=== PATIENT | female | born 1995 ===

== ENCOUNTER → 2017-05-04 | Outpatient (CLI) | payer BC, OTHER ==
--- NOTE | 2017-05-04 14:25 | DIAGNOSTIC IMAGING REPORT ---
RIGHT FOOT MIN 3 VIEWS CLINICAL HISTORY: Right foot pain. COMPARISON: None FINDINGS: Tarsometatarsal joints are intact. No acute fracture is identified. There is an os trigonum. Joint spaces are preserved. There are no erosions. IMPRESSION: 1. No acute fracture or dislocation of the right foot. 2. Os trigonum. Electronically signed by: Yannick Porter M.D. 05/04/2017 2:24 PM Dictated Date/Time: 05/04/2017 2:21 PM
== END | disposition home or self-care (01) ==
LOC: C.RDSM 13:25
PROVIDERS: ATTEND Internal Medicine
DX: M79.671 Pain in right foot (principal); Q68.8 Other specified congenital musculoskeletal deformities

== ENCOUNTER → 2017-06-06 | Outpatient (CLI) | payer BC, OTHER ==
--- NOTE | 2017-06-06 15:16 | DIAGNOSTIC IMAGING REPORT ---
L SHOULDER MIN 2 VIEWS ROUTINE CLINICAL HISTORY: 22 years-old Female presenting with LT SHOULDER INJURY. TECHNIQUE: Internal rotation, transscapular Y, and axillary views of the left shoulder were obtained. COMPARISON: None. FINDINGS: Glenohumeral and acromioclavicular joints congruent. No acute fracture of the humerus or scapula. Mild irregularity of the mid to distal clavicle diaphysis could represent overlapping shadows or a prominent nutrient canal. No convincing evidence of a fracture. Regional soft tissues within normal limits. Visualized portions of the left lung clear. IMPRESSION: No convincing evidence of acute osseous injury of the left shoulder. No subluxation the glenohumeral joint. In discussing with the ordering physician, no point tenderness at the mid to distal clavicle to suggest injury. Electronically signed by: Fadi Ceballos M.D. 06/06/2017 3:14 PM Dictated Date/Time: 06/06/2017 3:13 PM
== END | disposition home or self-care (01) ==
LOC: C.RAD 14:09
PROVIDERS: ATTEND Internal Medicine
DX: M25.512 Pain in left shoulder (principal)

== ENCOUNTER → 2017-06-07 | Outpatient (CLI) | payer OTHER ==
--- NOTE | 2017-06-07 12:20 | DIAGNOSTIC IMAGING REPORT ---
LEFT CLAVICLE 2 VIEWS CLINICAL HISTORY: Left clavicular fracture. FINDINGS: 2 views of left clavicle are correlated with radiographs of the left shoulder dated 06/06/2017. The skeletal structures are well mineralized. There is a minimally distracted fracture through the mid to distal shaft of the left clavicle with apex cranial angulation. The sternoclavicular and acromioclavicular joints appear maintained. The left upper lobe lung parenchyma is clear as imaged. IMPRESSION: Minimally distracted and angulated fracture through the mid to distal shaft of the left clavicle as above. Electronically signed by: Darrell Duran M.D. 06/07/2017 12:19 PM Dictated Date/Time: 06/07/2017 12:15 PM
== END | disposition home or self-care (01) ==
LOC: C.RDSM 15:58
PROVIDERS: ATTEND Internal Medicine
DX: S42.022A Displaced fracture of shaft of left clavicle, initial encounter for closed fracture (principal); X58.XXXA Exposure to other specified factors, initial encounter

== ENCOUNTER → 2017-06-18 | Outpatient (CLI) | payer BC, OTHER ==
--- NOTE | 2017-06-18 11:44 | DIAGNOSTIC IMAGING REPORT ---
LEFT CLAVICLE 2 VIEWS CLINICAL HISTORY: CLOSED FRACTURE OF LEFT CLAVICLE COMPARISON STUDY: Left clavicle 06/07/2017. FINDINGS: Redemonstration of the slightly angulated left mid shaft clavicle fracture. The angulation is not significantly changed. There has been interval bony bridging consistent with partial healing. IMPRESSION: Healing left mid shaft clavicle fracture with no significant change in the mild inferior angulation. Electronically signed by: Arun Patel M.D. 06/18/2017 11:43 AM Dictated Date/Time: 06/18/2017 11:41 AM
== END | disposition home or self-care (01) ==
LOC: C.RDSM 14:09
PROVIDERS: ATTEND Internal Medicine
DX: S42.002D Fracture of unspecified part of left clavicle, subsequent encounter for fracture with routine healing (principal); X58.XXXD Exposure to other specified factors, subsequent encounter

== ENCOUNTER → 2017-07-14 | Outpatient (CLI) | payer BC, OTHER ==
--- NOTE | 2017-07-14 12:07 | DIAGNOSTIC IMAGING REPORT ---
L CLAVICLE COMPLETE CLINICAL HISTORY: Left clavicle fracture COMPARISON: Left clavicle radiographs June 30, 2017 per FINDINGS: Alignment of the left acromioclavicular joint remains anatomic. Alignment of the nondisplaced fracture of the midshaft of the left clavicle is unchanged. The fracture is partially healed with no significant change in appearance since exam of June 30, 2017 with the exception of slight increase in callus formation along the undersurface of the clavicle. IMPRESSION: No change in alignment of the nondisplaced left clavicular fracture with minimal interval healing. Increase in callus formation along the undersurface of the clavicle. Electronically signed by: Yannick Porter M.D. 07/14/2017 12:06 PM Dictated Date/Time: 07/14/2017 12:04 PM
== END | disposition home or self-care (01) ==
LOC: C.RDSM 12:32
PROVIDERS: ATTEND Internal Medicine
DX: S42.009A Fracture of unspecified part of unspecified clavicle, initial encounter for closed fracture (principal); X58.XXXA Exposure to other specified factors, initial encounter

== ENCOUNTER → 2017-07-19 | Outpatient (CLI) | payer BC, OTHER ==
--- NOTE | 2017-07-19 11:00 | DIAGNOSTIC IMAGING REPORT ---
LEFT CLAVICLE 2 VIEWS HISTORY: LEFT SHOULDER PAIN COMPARISON: Left clavicle 07/14/2017. FINDINGS: Continued healing of the midshaft left clavicle fracture which is nondisplaced. This demonstrates progressive bony bridging and callus formation. Soft tissues are unremarkable. No radiopaque foreign bodies. IMPRESSION: Progressive healing within the nondisplaced left mid shaft clavicle fracture. Electronically signed by: Arun Patel M.D. 07/19/2017 10:59 AM Dictated Date/Time: 07/19/2017 10:58 AM
== END | disposition home or self-care (01) ==
LOC: C.RDSM 10:38
PROVIDERS: ATTEND Internal Medicine
DX: M25.512 Pain in left shoulder (principal)